=== PATIENT | female | born 1995 | race African-American/Black ===

== ENCOUNTER 2020-06-01 18:16 | Emergency (ER) | payer OTHER, MEDICAID ==
[~2020-06-01] VITALS: Ht 160 cm; Wt 85.2 kg
--- NOTE | 2020-06-01 19:14 | NUR ---
pt called to room from lobby
[2020-06-01] MEDS ORDERED: KETOROLAC 30 MG/1 ML ONE (19:26)
[2020-06-01] MEDS ORDERED: KETOROLAC 30 MG/1 ML IM ONE (19:30)
[2020-06-01] MEDS ORDERED: NORG1TAB6 PO (19:32)
[2020-06-01 19:34] VITALS: BP 115/72
--- NOTE | 2020-06-01 19:39 | NUR ---
pt changed into gown. anamaria ragsdale in to see patient. R shoulder pain. ice applied.
--- NOTE | 2020-06-01 19:57 | NUR ---
discharge instructions reviewed with patient. no further questions. work note provided as well. instructed to call and set up appt with occupational health at [facility] due to this being work related injury as well as other referral. prescription handed to patient directly. in NAD. pain decreased since IM injection of toradol per pt report. steady gait to lobby. no IV placed during this visit. all personal belongings with patient on dc Addendum: 06/01/20 at 1958 by TANIHSA R arm sling in place
== END 2020-06-01 20:16 | disposition home or self-care (01) ==
LOC: ED 19:30
DX: S43.101A Unspecified dislocation of right acromioclavicular joint, initial encounter (principal); X50.0XXA Overexertion from strenuous movement or load, initial encounter; Y93.89 Activity, other specified; Y92.69 Other specified industrial and construction area as the place of occurrence of the external cause; Y99.0 Civilian activity done for income or pay
CPT/HCPCS: 73030; 96372; 99283; J1885